=== PATIENT | male | born 1990 | race Caucasian/White ===

== ENCOUNTER 2017-12-13 10:16 | Emergency (ER) | payer OTHER ==
[2017-12-13] MEDS: METOCLOPRAMIDE INJ 10MG/2ML VIAL (J2765) IV (11:05)
[2017-12-13] MEDS: KETOROLAC 30 MG/ML VIAL (J1885) IV (11:05)
[2017-12-13] MEDS: diphenhydrAMINE INJ 50MG/ML VIAL (J1200) IV (11:05)
[2017-12-13] MEDS: NS 1,000 ML IV (11:06)
== END 2017-12-13 11:51 | disposition home or self-care (01) ==
LOC: M ED 10:16
DX: G40.909 Epilepsy, unspecified, not intractable, without status epilepticus (principal)
CPT/HCPCS: J1200

== ENCOUNTER 2019-10-06 07:31 | Emergency (ER) | payer OTHER ==
[~2019-10-06] VITALS: Ht 185.4 cm; Wt 74.6 kg
[~2019-10-06 07:31] MED LIST: IBUP80TA PO
[2019-10-06] MEDS ORDERED: IBUPROFEN 800 MG TAB PO ONE (08:30)
--- NOTE | 2019-10-06 08:30 | REP ---
Clinical: Left testicular pain and swelling. Technique: Real time sutton scale and color Doppler evaluation using linear high frequency transducer. Findings: The bilateral testicles are relatively normal in contour, size, echogenicity, and vascularity. There is no evidence for testicular torsion, infectious/inflammatory process, or mass lesion. Right epididymis is normal. Left epididymis includes 5.5 x 4.0 x 4.8 mm epididymal head cyst possibly related to patient's symptoms. No hydroceles or varicoceles noted. Right testicle measures 4.3 x 2.2 x 2.8 cm. Left testicle measures 4.4 x 2.1 x 2.9 cm. Impression: 5.5 mm left epididymal cyst possibly related to patient's symptoms. Otherwise normal scrotal ultrasound. Electronically Signed by Gary Freeman MD 10/06/2019 08:21 A
[2019-10-06 10:44] LABS: CHLAMYDIA DNA AMPLIFICATION NEGATIVE (NEGATIVE); GC DNA AMPLIFICATION NEGATIVE (NEGATIVE)
[2019-10-06 10:51] VITALS: BP 116/73
== END 2019-10-06 10:52 | disposition home or self-care (01) ==
LOC: M ED 07:31
DX: N50.812 Left testicular pain (principal); N50.3 Cyst of epididymis

== ENCOUNTER 2020-09-12 04:46 | Emergency (ER) | payer OTHER ==
[~2020-09-12] VITALS: Ht 193 cm; Wt 77.2 kg
[2020-09-12 05:58] LABS: RSV AMPLIFICATION NEGATIVE (NEGATIVE)
[2020-09-12 07:37] VITALS: BP 123/76
[2020-09-12 07:45] LABS: BASO % 0.4 % (0.0-1.0); EOS # 0.1 10^3/uL (0.0-0.5); EOS % 2.4 % (0.0-3.0); HEMATOCRIT 45.8 % (42.0-52.0); HEMOGLOBIN 15.2 g/dl (13.5-17.5); LYMPH # 1.2 10^3/uL (1.5-5.0); LYMPH % 21.9 % (24.0-44.0); MEAN CORPUSCULAR HEMOGLOBIN 30.3 pg (27.0-33.0); MEAN CORPUSCULAR HGB CONC 33.2 g/dl (32.0-36.5); MEAN CORPUSCULAR VOLUME 91.4 fl (80.0-96.0); MONO # 0.6 10^3/uL (0.0-0.8); MONO % 11.6 % (2.0-8.0); NEUTROPHILS # 3.4 10^3/uL (1.5-8.5); NEUTROPHILS % 63.5 % (36.0-66.0); PLATELET COUNT, AUTOMATED 224 10^3/uL (150-450); RED BLOOD COUNT 5.01 10^6/uL (4.30-6.10); WHITE BLOOD COUNT 5.3 10^3/uL (4.0-10.0)
[2020-09-12 08:15] LABS: CK-MB VALUE MASS < 1.0 NG/ML (<3.6); CPK CREATINE PHOSPHOKINASE 129 U/L (39-308); MB/CK RELATIVE INDEX 0.78 (< OR =4); TROPONIN I < 0.02 NG/ML (< 0.10)
--- NOTE | 2020-09-12 08:41 | REPVR ---
PROCEDURE INFORMATION: Exam: XR Chest Exam date and time: 09/12/2020 7:12 AM Age: 29 years old Clinical indication: Other: Chest tightness; Additional info: Tightness chest TECHNIQUE: Imaging protocol: XR of the chest. Views: 2 views. COMPARISON: CR Chest, 2 view PA, Lat 06/25/2017 8:37 AM FINDINGS: Lungs: Unremarkable. No consolidation. Pleural spaces: Unremarkable. No pleural effusion. No pneumothorax. Heart/Mediastinum: Unremarkable. No cardiomegaly. Bones/joints: Unremarkable. IMPRESSION: No acute abnormalities are identified. Electronically signed by: Gary Haider On 09/12/2020 08:40:40 AM
--- NOTE | 2020-09-12 22:30 | ECGEPIP ---
[facility] - ED Test Date: 2020-09-12 Pat Name: DEANGELO CRAVEN Department: Room: - Gender: Male Ordnance Handler: : [id number] Requested By: SAIGE Beavers PA-C Order Number: [id number] Reading MD: Channing Ventura Measurements Intervals [place] Rate: 56 P: 64 FL: 180 QRS: 66 QRSD: 84 T: 47 QT: 408 QTc: 393 Interpretive Statements Sinus bradycardia early repolarization Similar to tracing done 06-25-17 Electronically Signed on 09-12-2020 22:30:16 EDT by Channing Ventura
== END 2020-09-12 09:11 | disposition home or self-care (01) ==
LOC: M ED 04:46
DX: R07.9 Chest pain, unspecified (principal); B34.9 Viral infection, unspecified; R05 Cough